=== PATIENT | female | born 1970 | race Caucasian/White ===

== ENCOUNTER 2022-06-30 08:48 | Emergency (ER) | payer MEDICAID ==
[~2022-06-30] VITALS: Ht 160 cm; Wt 106.8 kg
[2022-06-30 08:49] VITALS: BP 132/79
[2022-06-30] MEDS ORDERED: oxyCODONE IR 5mg (immed. release) tablet PO ONE (09:30)
[2022-06-30] MEDS ORDERED: QUET-1 PO (09:42)
[2022-06-30] MEDS ORDERED: LITH300C PO (09:42)
[2022-06-30] MEDS ORDERED: ZOLP10TA PO (09:42)
== END 2022-06-30 10:04 | disposition home or self-care (01) ==
LOC: ER 08:49
DX: M06.9 Rheumatoid arthritis, unspecified (principal); M45.9 Ankylosing spondylitis of unspecified sites in spine; Z76.0 Encounter for issue of repeat prescription; Z88.1 Allergy status to other antibiotic agents; Z88.8 Allergy status to other drugs, medicaments and biological substances; Z79.899 Other long term (current) drug therapy
CPT/HCPCS: 99283

== ENCOUNTER 2022-07-11 08:25 | Emergency (ER) | payer MEDICAID ==
[~2022-07-11] VITALS: Ht 160 cm; Wt 106.0 kg
[~2022-07-11 08:25] MED LIST: LITH300C PO; QUET-1 PO; ZOLP10TA PO
[2022-07-11 08:46] VITALS: BP 127/92
[2022-07-11] MEDS ORDERED: SUMAtriptan succ. 6 MG/0.5ml vial SQ ONE (11:35)
[2022-07-11] MEDS ORDERED: diphenhydrAMINE 50 mg/ml inj IV ONE (11:35)
[2022-07-11] MEDS ORDERED: normal saline 1000ML IV soln IVB ONE (11:35)
[2022-07-11] MEDS ORDERED: ondansetron/PF 4mg/2ml inj IV ONE (12:10)
== END 2022-07-11 13:21 | disposition home or self-care (01) ==
LOC: ER 08:26
DX: G43.119 Migraine with aura, intractable, without status migrainosus (principal); I10 Essential (primary) hypertension; Z88.1 Allergy status to other antibiotic agents; Z88.8 Allergy status to other drugs, medicaments and biological substances
CPT/HCPCS: 96372; 96374; 96375; 99284; J1200; J2405; J3030; J7030

== ENCOUNTER 2022-09-01 07:47 | Inpatient (IN) | payer MEDICAID ==
[~2022-09-01] VITALS: Ht 160 cm; Wt 102.0 kg
[2022-09-01 08:13] LABS: URINE HCG NEGATIVE (NEG)
[2022-09-01 08:19] LABS: BASOPHILS # (AUTO) 0.1 X10'3 (0-0.2); BASOPHILS % (AUTO) 0.5 % (0-1); EOSINOPHILS # (AUTO) 0.2 X10'3 (0-0.9); EOSINOPHILS % (AUTO) 2.4 % (0-6); HEMATOCRIT 37.2 % (35.0-45.0); HEMOGLOBIN 12.3 g/dl (12.0-16.0); LYMPHOCYTES % (AUTO) 29.3 % (21-51); MEAN CORPUSCULAR HEMOGLOBIN 33.8 PG (27.0-31.0); MEAN CORPUSCULAR VOLUME 102.6 FL (78-98); MEAN PLATELET VOLUME 6.9 FL (7.4-10.4); MONOCYTES # (AUTO) 0.5 X10'3 (0-0.9); MONOCYTES % (AUTO) 4.9 % (2-12); NEUTROPHILS # (AUTO) 6.4 X10'3 (1.8-7.7); NEUTROPHILS % (AUTO) 62.9 % (42-75); PLATELET COUNT 568 X10'3 (140-440); RED BLOOD COUNT 3.62 X10'6 (4.20-5.60); RED CELL DISTRIBUTION WIDTH 15.2 % (11.5-14.5); WHITE BLOOD COUNT 10.2 X10'3 (4.5-11.0)
[2022-09-01] MEDS ORDERED: pantoprazole 40mg IV 80 MG in normal saline 100ml IV soln 100 ML IV ONE (08:30)
[2022-09-01] MEDS ORDERED: ondansetron/PF 4mg/2ml inj IV ONE (08:30)
[2022-09-01] MEDS ORDERED: morphine 2 MG/ML inj. syringe IV ONE ×2 (08:30→09:30)
[2022-09-01] MEDS ORDERED: normal saline 1000ml 1,000 ML IV ONE (08:30)
[2022-09-01 08:31] LABS: ALANINE AMINOTRANSFERASE 26 U/L (12-78); ALBUMIN 4.1 G/DL (3.4-5.0); ALBUMIN/GLOBULIN RATIO 1.2 (1.1-1.5); ALKALINE PHOSPHATASE 61 IU/L (46-116); ANION GAP 13 (8-16); ASPARTATE AMINO TRANSFERASE 19 U/L (10-37); BILIRUBIN,TOTAL 0.4 MG/DL (0.1-1.0); BLOOD UREA NITROGEN 6 MG/DL (7-18); BUN/CREATININE RATIO 7.3 (10.0-20.0); CALCIUM 9.4 MG/DL (8.5-10.1); CHLORIDE 102 MMOL/L (99-107); CREATININE 0.82 MG/DL (0.40-0.90); GLUCOSE 129 MG/DL (70-104); LIPASE 51 U/L (73-393); SODIUM 138 MMOL/L (135-145); TOTAL CARBON DIOXIDE 23.5 MMOL/L (24-32); TOTAL PROTEIN 7.4 G/DL (6.4-8.2); eGFR 74 ML/MIN
[2022-09-01 08:47] LABS: CLARITY,URINE CLEAR (Clear); COLOR,URINE YELLOW (Yellow); GLUCOSE, URINE 500 mg/dl (Neg); KETONES,URINE NEGATIVE (Neg); LEUKOCYTE ESTERASE ,URINE NEGATIVE (Neg); NITRITES, URINE NEGATIVE (Neg); OCCULT BLOOD,URINE NEGATIVE (Neg); PROTEIN,URINE NEGATIVE (Neg); UROBILINOGEN,URINE 0.2 E.U/dL (0.2-1.0)
[2022-09-01 08:50] LABS: UA COLLECTION TYPE CLN CATCH MIDSTREAM
[2022-09-01] MEDS ORDERED: iohexol 300mg/ml 100ml inj. ONE (09:12)
--- NOTE | 2022-09-01 10:29 | NUR ---
PER DR RAYGOZA HEMOCULT POSITIVE PT TO BE ADMITTED FOR GI BLEED
[2022-09-01] MEDS: pantoprazole 40MG/NS 100ML BAG 100 ML IV SCH ×3 (11:00→23:02)
[2022-09-01] MEDS ORDERED: MESSAGE TO PHARMACY PO ONE (11:15)
[2022-09-01] MEDS ORDERED: potassium Cl 20 mEq SR tablet PO PRN ×2 (11:15)
[2022-09-01] MEDS ORDERED: DEXTROSE 15 GM of carb/4 tabs (each vial/BOTTLE has 4 tablets) PO PRN ×2 (11:15)
[2022-09-01] MEDS ORDERED: magnesium hydroxide 30ml (MOM) UD suspension PO PRN (11:15)
[2022-09-01] MEDS ORDERED: magnesium 4gm in 100ml NS 100 ML IV PRN (11:15)
[2022-09-01] MEDS ORDERED: acetaminophen 325mg tablet PO PRN ×2 (11:15)
[2022-09-01] MEDS ORDERED: potassium Cl 40MEQ/1/2NS 520ml 520 ML IV PRN (11:15)
[2022-09-01] MEDS ORDERED: mag hydrox/Alum hydrox/simeth 30ml oral suspension PO PRN (11:15)
[2022-09-01] MEDS ORDERED: HYDROcodone/acetaminophen 5mg/325mg tablet PO PRN (11:15)
[2022-09-01] MEDS ORDERED: insulin Lispro (HumaLOG) vial - multi-dose SQ SCH (11:15)
[2022-09-01] MEDS ORDERED: dextrose 50%-water 50ml dispensing syringe IV PRN ×2 (11:15)
[2022-09-01] MEDS ORDERED: ondansetron/PF 4mg/2ml inj IV PRN (11:15)
[2022-09-01] MEDS ORDERED: glucagon, human recombinant 1mg kit SUBCUT PRN (11:15)
[2022-09-01] MEDS: HYDROcodone/acetaminophen 10/325mg tab PO PRN ×2 (12:02→19:32)
[2022-09-01] MEDS ORDERED: LIT300C PO (13:06)
[2022-09-01] MEDS ORDERED: FOLI1TAB27 PO (13:08)
[2022-09-01] MEDS ORDERED: OXYC1TAB17 PO (13:22)
[2022-09-01] MEDS ORDERED: DULO60CA65 PO (13:22)
[2022-09-01] MEDS ORDERED: METH-798 PO (13:22)
[2022-09-01] MEDS ORDERED: LAMO200T51 PO (13:22)
[2022-09-01] MEDS ORDERED: EMPA10TA PO (13:22)
[2022-09-01] MEDS ORDERED: MELO-102 PO (13:22)
[2022-09-01] MEDS ORDERED: LOSA25TA41 PO (13:22)
[2022-09-01] MEDS ORDERED: MUPI22OI30 TOP (13:22)
[2022-09-01] MEDS ORDERED: FLUT16SP26 BOTHNARES (13:22)
[2022-09-01] MEDS ORDERED: CARI4.5C PO (13:22)
[2022-09-01] MEDS ORDERED: METO-395 PO (13:22)
[2022-09-01] MEDS ORDERED: DULA1.5P SQ (13:22)
[2022-09-01] MEDS ORDERED: ATOR-2 PO (13:22)
--- NOTE | 2022-09-01 13:33 | NUR ---
CALL PLACED TO ORTHO IN ATTEMPT TO GIVE REPORT, LEFT ON HOLD FOR EXTENDED PERIOD. HUNG UP TO RECEIVE AMBULANCE. WILL CALL IN 10
--- NOTE | 2022-09-01 13:41 | NUR ---
SECOND ATTEMPT AT CALLING REPORT, LEFT ON HOLD FOR FOUR MINUTES. NEED TO SETTLE CRITICAL PATIENT
--- NOTE | 2022-09-01 13:55 | NUR ---
RODOLFO RN WILL CALL ME BY [phone] TO RECEIVE REPORT, SHE HAS JUST SPIKED BLOOD
--- NOTE | 2022-09-01 14:03 | NUR ---
PER JESUS THIS RN TO TAKE PT UP TO GIVE BEDSIDE REPORT
--- NOTE | 2022-09-01 14:04 | NUR ---
ATTEMPTED TO CALL [facility] TO GIVE REPORT BEFORE TRANSPORTING PT, NO ANSWER ON ORTHO 10+ RINGS
[2022-09-01] MEDS ORDERED: TYPE IN GENERIC & BRAND NAME OF PATIENT MED STRENGTH & FORM PO PRN (14:10)
[2022-09-01] MEDS ORDERED: oxyCODONE/APAP 10/325mg tablet PO PRN (14:10)
[2022-09-01 14:30] VITALS: BP 145/89
[2022-09-01 16:08] VITALS: BP 147/70
[2022-09-01 16:08] LABS: OCCULT BLOOD STOOL POSITIVE (Neg)
[2022-09-01] MEDS ORDERED: fentaNYL/PF 50MCG/1 ML 2ML syringe ONE (16:11)
[2022-09-01] MEDS ORDERED: MIDAZolam 1 MG/ML 5ML VIAL ONE (16:12)
[2022-09-01] MEDS ORDERED: diphenhydrAMINE 50 mg/ml inj ONE (16:12)
[2022-09-01] MEDS ORDERED: LIDOcaine Viscous 15ml cup ONE (16:12)
[2022-09-01 16:35] VITALS: BP 138/82
[2022-09-01 16:45] VITALS: BP 141/76
[2022-09-01 16:55] VITALS: BP 132/77
[2022-09-01 17:05] VITALS: BP 145/78
[2022-09-01 19:18] LABS: HEMOGLOBIN A1C 4.9 % (4.5-6.2)
[2022-09-01] MEDS: docusate sod 100mg capsule PO SCH (19:34)
[2022-09-01] MEDS ORDERED: mupirocin 2% ointment 22GM NS SCH (20:00)
[2022-09-01] MEDS: K and/or MAG REPLACEMENT MC SCH (20:00)
[2022-09-01] MEDS ORDERED: insulin glargine (Lantus) pen - multi-dose SQ SCH (21:00)
[2022-09-01] MEDS ORDERED: lithium carbonate 150mg capsule PO SCH (21:00)
[2022-09-01] MEDS ORDERED: atorvastatin 20mg tablet PO SCH (21:00)
[2022-09-01] MEDS ORDERED: zolpidem 5mg tablet PO PRN (21:00)
[2022-09-01] MEDS ORDERED: TYPE IN GENERIC & BRAND NAME OF PATIENT MED STRENGTH & FORM PO SCH (21:00)
[2022-09-01] MEDS ORDERED: mupirocin 2% nasal ointment 1gm UD NS SCH (21:35)
--- NOTE | 2022-09-01 22:21 | NUR ---
Student documentation: I have reviewed interventions, assessments performed and documented by Dorita GASTON [facility].
[2022-09-01] MEDS: oxyCODONE/APAP 10/325mg tablet PO PRN (23:16)
[2022-09-02] MEDS: pantoprazole 40MG/NS 100ML BAG 100 ML IV SCH ×3 (04:09→10:46)
[2022-09-02] MEDS: K and/or MAG REPLACEMENT MC SCH (06:16)
[2022-09-02 07:16] LABS: BASOPHILS % (AUTO) 0.5 % (0-1); EOSINOPHILS # (AUTO) 0.3 X10'3 (0-0.9); HEMATOCRIT 33.7 % (35.0-45.0); HEMOGLOBIN 11.1 g/dl (12.0-16.0); LYMPHOCYTES # (AUTO) 2.8 X10'3 (1.1-4.8); LYMPHOCYTES % (AUTO) 35.4 % (21-51); MEAN CORPUSCULAR HGB CONC 33.1 g/dL (33.0-36.5); MEAN CORPUSCULAR VOLUME 102.6 FL (78-98); MEAN PLATELET VOLUME 6.9 FL (7.4-10.4); MONOCYTES # (AUTO) 0.5 X10'3 (0-0.9); MONOCYTES % (AUTO) 5.9 % (2-12); NEUTROPHILS # (AUTO) 4.2 X10'3 (1.8-7.7); NEUTROPHILS % (AUTO) 54.2 % (42-75); PLATELET COUNT 479 X10'3 (140-440); RED BLOOD COUNT 3.28 X10'6 (4.20-5.60); RED CELL DISTRIBUTION WIDTH 15.4 % (11.5-14.5); WHITE BLOOD COUNT 7.8 X10'3 (4.5-11.0)
[2022-09-02 07:38] LABS: ALANINE AMINOTRANSFERASE 24 U/L (12-78); ALBUMIN 3.5 G/DL (3.4-5.0); ALBUMIN/GLOBULIN RATIO 1.3 (1.1-1.5); ALKALINE PHOSPHATASE 53 IU/L (46-116); ANION GAP 8 (8-16); ASPARTATE AMINO TRANSFERASE 21 U/L (10-37); BILIRUBIN,TOTAL 0.2 MG/DL (0.1-1.0); BLOOD UREA NITROGEN 6 MG/DL (7-18); BUN/CREATININE RATIO 9.5 (10.0-20.0); CALCIUM 9.3 MG/DL (8.5-10.1); CHLORIDE 105 MMOL/L (99-107); CREATININE 0.63 MG/DL (0.40-0.90); GLUCOSE 104 MG/DL (70-104); POTASSIUM 3.6 MMOL/L (3.5-5.1); SODIUM 140 MMOL/L (135-145); TOTAL PROTEIN 6.3 G/DL (6.4-8.2); eGFR > 90 ML/MIN
[2022-09-02 07:56] VITALS: BP 119/84
[2022-09-02] MEDS ORDERED: metoprolol succinate 25mg (24-HOUR) SR. Tablet PO SCH (08:00)
[2022-09-02] MEDS ORDERED: folic acid 1mg tablet PO SCH (08:00)
[2022-09-02] MEDS ORDERED: TYPE IN GENERIC & BRAND NAME OF PATIENT MED STRENGTH & FORM PO SCH (08:00)
[2022-09-02] MEDS ORDERED: duloxetine 30mg CAPSULE.DR PO SCH (08:00)
[2022-09-02] MEDS ORDERED: EMPAGLIFLOZIN 10 MG TABLET PO SCH (08:00)
[2022-09-02] MEDS ORDERED: losartan 25mg tablet PO SCH (08:00)
[2022-09-02] MEDS: docusate sod 100mg capsule PO SCH (08:42)
[2022-09-02] MEDS: oxyCODONE/APAP 10/325mg tablet PO PRN (08:50)
--- NOTE | 2022-09-02 09:28 | NUR ---
DM Consult: Pt hx T2DM in EMR though A1C 4.9% on regular diet, no home DM meds in EMR, and to start Jardiance this admit per EMR. Pt A1C appropriate per ADA guidelines; not appropriate for DM ed at this time. Addendum: 09/02/22 at [address] Amended: Links added.
[2022-09-02 09:53] VITALS: BP 115/92
[2022-09-02] MEDS ORDERED: ALPRAZolam 0.25mg tablet PO PRN (10:05)
[2022-09-02] MEDS ORDERED: PANT-47 PO (12:03)
[2022-09-02] MEDS: HYDROcodone/acetaminophen 10/325mg tab PO PRN (12:45)
[2022-09-03 15:38] LABS: HBSAG SCREEN Negative (Negative); HEP B CORE AB, TOT Negative (Negative)
== END 2022-09-02 13:15 | disposition home or self-care (01) | DRG 241 ==
LOC: ER 07:47 → ED HOLD 11:21 → ORTHO 4S 14:20
PROVIDERS: ADMIT Family Medicine; ATTEND Family Medicine
PROC: BW211ZZ Computerized Tomography (CT Scan) of Abdomen and Pelvis using Low Osmolar Contrast (ICD-10-PCS; principal; 2022-09-01)
PROC: 0DB78ZX Excision of Stomach, Pylorus, Via Natural or Artificial Opening Endoscopic, Diagnostic (ICD-10-PCS; 2022-09-01)
DX: K25.4 Chronic or unspecified gastric ulcer with hemorrhage (principal); K22.11 Ulcer of esophagus with bleeding; D64.9 Anemia, unspecified; E11.9 Type 2 diabetes mellitus without complications; E78.5 Hyperlipidemia, unspecified; F31.9 Bipolar disorder, unspecified; I10 Essential (primary) hypertension; G24.01 Drug induced subacute dyskinesia; M06.9 Rheumatoid arthritis, unspecified; M45.9 Ankylosing spondylitis of unspecified sites in spine; Z79.84 Long term (current) use of oral hypoglycemic drugs; Z81.8 Family history of other mental and behavioral disorders; Z88.1 Allergy status to other antibiotic agents; Z90.49 Acquired absence of other specified parts of digestive tract; Z88.8 Allergy status to other drugs, medicaments and biological substances
CPT/HCPCS: 36415; 43239; 74177; 80053; 81003; 81025; 82272; 82948; 83036; 83690; 83735; 84702; 85025; 86704; 86705; 86706; 86885; 86900; 86901; 87340; 99152; 99285; A4620; C9113; G0378; J1200; J1815; J2250; J2270; J2405; J3010; J3490; J7030; Q9967

== ENCOUNTER 2022-09-16 08:47 | Emergency (ER) | payer MEDICAID ==
[~2022-09-16] VITALS: Ht 160 cm; Wt 100.0 kg
[~2022-09-16 08:47] MED LIST changes: +ATOR-2 PO; +CARI4.5C PO; +DULA1.5P SQ; +DULO60CA65 PO; +EMPA10TA PO; +FLUT16SP26 BOTHNARES; +FOLI1TAB27 PO; +LAMO200T51 PO; +LIT300C PO; -LITH300C PO; +LOSA25TA41 PO; +METH-798 PO; +METO-395 PO; +MUPI22OI30 TOP; +OXYC1TAB17 PO; +PANT-47 PO; -QUET-1 PO
[2022-09-16 09:57] LABS: BASOPHILS # (AUTO) 0.1 X10'3 (0-0.2); BASOPHILS % (AUTO) 0.7 % (0-1); EOSINOPHILS # (AUTO) 0.3 X10'3 (0-0.9); EOSINOPHILS % (AUTO) 3.1 % (0-6); HEMATOCRIT 40.7 % (35.0-45.0); HEMOGLOBIN 13.4 g/dl (12.0-16.0); LYMPHOCYTES # (AUTO) 2.2 X10'3 (1.1-4.8); LYMPHOCYTES % (AUTO) 26.9 % (21-51); MEAN CORPUSCULAR HEMOGLOBIN 33.9 PG (27.0-31.0); MEAN CORPUSCULAR HGB CONC 32.9 g/dL (33.0-36.5); MEAN CORPUSCULAR VOLUME 102.9 FL (78-98); MEAN PLATELET VOLUME 6.4 FL (7.4-10.4); MONOCYTES # (AUTO) 0.4 X10'3 (0-0.9); MONOCYTES % (AUTO) 5.2 % (2-12); NEUTROPHILS # (AUTO) 5.2 X10'3 (1.8-7.7); NEUTROPHILS % (AUTO) 64.1 % (42-75); PLATELET COUNT 515 X10'3 (140-440); RED BLOOD COUNT 3.96 X10'6 (4.20-5.60); RED CELL DISTRIBUTION WIDTH 15.5 % (11.5-14.5); WHITE BLOOD COUNT 8.2 X10'3 (4.5-11.0)
[2022-09-16 10:07] LABS: APTT 28 SECONDS (22-32)
[2022-09-16 10:08] LABS: ALANINE AMINOTRANSFERASE 23 U/L (12-78); ALBUMIN 3.8 G/DL (3.4-5.0); ALBUMIN/GLOBULIN RATIO 1.2 (1.1-1.5); ALKALINE PHOSPHATASE 67 IU/L (46-116); ANION GAP 8 (8-16); ASPARTATE AMINO TRANSFERASE 16 U/L (10-37); BILIRUBIN,TOTAL 0.3 MG/DL (0.1-1.0); BLOOD UREA NITROGEN 10 MG/DL (7-18); BUN/CREATININE RATIO 14.3 (10.0-20.0); CALCIUM 8.9 MG/DL (8.5-10.1); CHLORIDE 105 MMOL/L (99-107); GLUCOSE 115 MG/DL (70-104); POTASSIUM 4.3 MMOL/L (3.5-5.1); SODIUM 139 MMOL/L (135-145); eGFR 89 ML/MIN
[2022-09-16 10:28] LABS: URINE HCG NEGATIVE (NEG)
[2022-09-16 10:46] LABS: CLARITY,URINE CLEAR (Clear); COLOR,URINE YELLOW (Yellow); GLUCOSE, URINE NEGATIVE (Neg); KETONES,URINE NEGATIVE (Neg); LEUKOCYTE ESTERASE ,URINE NEGATIVE (Neg); NITRITES, URINE NEGATIVE (Neg); OCCULT BLOOD,URINE NEGATIVE (Neg); PROTEIN,URINE NEGATIVE (Neg); UROBILINOGEN,URINE 0.2 E.U/dL (0.2-1.0)
[2022-09-16 10:48] LABS: UA COLLECTION TYPE CLN CATCH MIDSTREAM
[2022-09-16] MEDS ORDERED: ondansetron 4mg rapidly disintigrating tab PO STA (10:56)
[2022-09-16] MEDS ORDERED: lactulose 20gm/30ml cup PO ONE (11:00)
[2022-09-16] MEDS ORDERED: magnesium oxide 400mg tablet PO ONE (11:00)
[2022-09-16] MEDS ORDERED: mineral oil 133ml enema RC PRN (11:00)
[2022-09-16] MEDS ORDERED: ketorolac trometh. 30mg/ml inj. IV ONE (12:00)
[2022-09-16] MEDS ORDERED: normal saline 1000ml 1,000 ML IV ONE (12:00)
[2022-09-16 12:02] LABS: OCCULT BLOOD STOOL NEGATIVE (Neg)
[2022-09-16] MEDS ORDERED: CALC625T62 PO (12:28)
[2022-09-16] MEDS ORDERED: BISA10SU64 RC (12:31)
[2022-09-16 13:09] VITALS: BP 112/85
== END 2022-09-16 13:11 | disposition home or self-care (01) ==
LOC: ER 08:48
DX: K59.00 Constipation, unspecified (principal); I10 Essential (primary) hypertension; Z88.1 Allergy status to other antibiotic agents; Z88.8 Allergy status to other drugs, medicaments and biological substances
CPT/HCPCS: 36415; 71045; 80053; 81003; 81025; 82272; 85025; 85610; 85730; 86885; 86900; 86901; 93005; 96374; 99285; J1885; J7030

== ENCOUNTER 2022-12-12 11:57 | Emergency (ER) | payer MEDICAID ==
[~2022-12-12] VITALS: Ht 160 cm; Wt 105.5 kg
[~2022-12-12 11:57] MED LIST changes: +BISA10SU64 RC; +CALC625T62 PO
[2022-12-12 12:08] VITALS: BP 123/76; PULSE 74; RESP 20; TEMP 98.4; O2SAT 97
[2022-12-12] MEDS ORDERED: ondansetron/PF 4mg/2ml inj IV ONE (14:40)
[2022-12-12] MEDS ORDERED: morphine 2 MG/ML inj. syringe IV ONE (14:40)
[2022-12-12] MEDS ORDERED: normal saline 1000ml 1,000 ML IV ONE (14:40)
[2022-12-12] MEDS ORDERED: ONDA4TAB12 PO (14:51)
[2022-12-12] MEDS ORDERED: METH4TAB3 PO (14:51)
--- NOTE | 2022-12-12 15:25 | NUR ---
REQUESTED CRN AND RN TO ADMIN IV MEDS AT 15:00 AND 15:20. PT STILL WAITING.
[2022-12-12] MEDS ORDERED: prednisone 10mg tablet PO STA (16:00)
== END 2022-12-12 16:12 | disposition home or self-care (01) ==
LOC: ER 11:58
DX: M06.9 Rheumatoid arthritis, unspecified (principal); I10 Essential (primary) hypertension; Z88.8 Allergy status to other drugs, medicaments and biological substances; Z88.6 Allergy status to analgesic agent
CPT/HCPCS: 96374; 96375; 99284; J2270; J2405; J7030; J7512

== ENCOUNTER 2023-02-18 09:24 | Inpatient (IN) | payer MEDICAID ==
[~2023-02-18] VITALS: Ht 160 cm; Wt 98.2 kg
[~2023-02-18 09:24] MED LIST changes: +METH4TAB3 PO; +ONDA4TAB12 PO
[2023-02-18 09:52] LABS: BASOPHILS % (AUTO) 0.4 % (0-1); EOSINOPHILS # (AUTO) 0.2 X10'3 (0-0.9); HEMATOCRIT 44.4 % (35.0-45.0); HEMOGLOBIN 14.7 g/dl (12.0-16.0); LYMPHOCYTES # (AUTO) 1.9 X10'3 (1.1-4.8); LYMPHOCYTES % (AUTO) 18.2 % (21-51); MEAN CORPUSCULAR HEMOGLOBIN 32.7 PG (27.0-31.0); MEAN CORPUSCULAR HGB CONC 33.2 g/dL (33.0-36.5); MEAN CORPUSCULAR VOLUME 98.5 FL (78-98); MEAN PLATELET VOLUME 7.4 FL (7.4-10.4); MONOCYTES # (AUTO) 0.8 X10'3 (0-0.9); MONOCYTES % (AUTO) 7.6 % (2-12); NEUTROPHILS # (AUTO) 7.7 X10'3 (1.8-7.7); NEUTROPHILS % (AUTO) 71.8 % (42-75); PLATELET COUNT 455 X10'3 (140-440); RED BLOOD COUNT 4.51 X10'6 (4.20-5.60); RED CELL DISTRIBUTION WIDTH 14.1 % (11.5-14.5); WHITE BLOOD COUNT 10.7 X10'3 (4.5-11.0)
[2023-02-18 10:08] LABS: ALANINE AMINOTRANSFERASE 24 U/L (12-78); ALBUMIN 3.7 G/DL (3.4-5.0); ALBUMIN/GLOBULIN RATIO 0.9 (1.1-1.5); ALKALINE PHOSPHATASE 88 IU/L (46-116); ANION GAP 8 (8-16); ASPARTATE AMINO TRANSFERASE 17 U/L (10-37); BILIRUBIN,TOTAL 0.4 MG/DL (0.1-1.0); BLOOD UREA NITROGEN 9 MG/DL (7-18); BUN/CREATININE RATIO 8.8 (10.0-20.0); CALCIUM 9.7 MG/DL (8.5-10.1); CHLORIDE 100 MMOL/L (99-107); CREATININE 1.02 MG/DL (0.40-0.90); GLUCOSE 216 MG/DL (70-104); SODIUM 136 MMOL/L (135-145); TOTAL CARBON DIOXIDE 27.6 MMOL/L (24-32); TOTAL PROTEIN 7.7 G/DL (6.4-8.2); eCRCL 55 ML/MIN; eGFR 57 ML/MIN
[2023-02-18 10:25] LABS: LIPASE 14 U/L (16-77)
[2023-02-18 11:28] LABS: URINE HCG NEGATIVE (NEG)
[2023-02-18 11:30] LABS: BILIRUBIN,URINE NEGATIVE (Neg); CLARITY,URINE CLOUDY (Clear); COLOR,URINE YELLOW (Yellow); GLUCOSE, URINE >=1000 mg/dl (Neg); KETONES,URINE TRACE mg/dl (Neg); LEUKOCYTE ESTERASE ,URINE SMALL (Neg); NITRITES, URINE POSITIVE (Neg); OCCULT BLOOD,URINE TRACE-INTACT (Neg); PH,URINE 5.5 (4.8-8.0); PROTEIN,URINE TRACE mg/dl (Neg); UROBILINOGEN,URINE 0.2 E.U/dL (0.2-1.0)
[2023-02-18 11:32] LABS: UA COLLECTION TYPE CLN CATCH MIDSTREAM
[2023-02-18 11:54] LABS: BACTERIA,URINE 2+ /HPF (Neg); RBC,URINE 0-2 /HPF (0-2); WBC CLUMPS,URINE MANY /HPF (NEGATIVE); WBC,URINE TNTC /HPF (0-4)
[2023-02-18 11:56] LABS: SQUAMOUS EPITHELIAL CELL,UR MODERATE /LPF (FEW)
[2023-02-18] MEDS ORDERED: iohexol 300mg/ml 100ml inj. ONE (11:58)
[2023-02-18] MEDS ORDERED: CefTRIAXone 2gm/D5W 50ml BAG 50 ML IV ONE (13:05)
[2023-02-18] MEDS ORDERED: diphenhydrAMINE 50 mg/ml inj IV ONE (13:10)
[2023-02-18] MEDS ORDERED: normal saline 1000ML IV soln IVB ONE (13:10)
[2023-02-18] MEDS ORDERED: metoclopramide 5 mg/ml inj IV ONE (13:10)
[2023-02-18] MEDS ORDERED: morphine 4 MG/ML inj SYRINge IV ONE (13:40)
[2023-02-18] MEDS ORDERED: morphine 2 MG/ML inj. syringe IV PRN (13:50)
[2023-02-18] MEDS ORDERED: DEXTROSE 15 GM of carb/4 tabs (each vial/BOTTLE has 4 tablets) PO PRN ×2 (13:50)
[2023-02-18] MEDS ORDERED: HYDROcodone/acetaminophen 5mg/325mg tablet PO PRN (13:50)
[2023-02-18] MEDS ORDERED: insulin Lispro (HumaLOG) vial - multi-dose SQ SCH (13:50)
[2023-02-18] MEDS ORDERED: MESSAGE TO PHARMACY PO ONE (13:50)
[2023-02-18] MEDS ORDERED: dextrose 50%-water 50ml dispensing syringe IV PRN ×2 (13:50)
[2023-02-18] MEDS ORDERED: mag hydrox/Alum hydrox/simeth 30ml oral suspension PO PRN (13:50)
[2023-02-18] MEDS ORDERED: acetaminophen 325mg tablet PO PRN ×2 (13:50)
[2023-02-18] MEDS ORDERED: glucagon, human recombinant 1mg kit SUBCUT PRN (13:50)
[2023-02-18] MEDS: metoclopramide 5 mg/ml inj IV SCH ×2 (14:34→20:45)
[2023-02-18 15:44] LABS: HEMOGLOBIN A1C 5.3 % (4.5-6.2); PRO BRAIN NATRIURETIC PEPTIDE 60 PG/ML (0-125)
[2023-02-18] MEDS ORDERED: LIT300C PO (15:56)
[2023-02-18] MEDS ORDERED: DULO60CA65 PO (15:57)
[2023-02-18] MEDS ORDERED: CELE-127 PO (15:57)
[2023-02-18] MEDS ORDERED: PANT40TA54 PO (15:58)
[2023-02-18] MEDS ORDERED: HYDR-3972 PO (15:58)
[2023-02-18] MEDS ORDERED: METH-798 PO (15:59)
[2023-02-18] MEDS ORDERED: DULA1.5P SQ (15:59)
[2023-02-18] MEDS ORDERED: ZOLP5TAB8 PO (16:01)
[2023-02-18] MEDS ORDERED: FLUT16SP26 BOTHNARES (16:01)
[2023-02-18] MEDS ORDERED: EMPA10TA PO (16:01)
[2023-02-18] MEDS ORDERED: LAMO200T51 PO (16:01)
[2023-02-18] MEDS ORDERED: QUET25TA36 PO (16:02)
[2023-02-18] MEDS ORDERED: ATOR-2 PO (16:02)
[2023-02-18] MEDS ORDERED: METO-395 PO (16:02)
[2023-02-18] MEDS ORDERED: LOSA25TA41 PO (16:02)
[2023-02-18] MEDS ORDERED: CARI4.5C PO (16:02)
[2023-02-18] MEDS: normal saline 1000ml 1,000 ML IV SCH ×2 (16:08→23:22)
[2023-02-18] MEDS: morphine 2 MG/ML inj. syringe IV PRN ×2 (16:17→20:46)
[2023-02-18] MEDS: ondansetron/PF 4mg/2ml inj IV PRN (16:21)
--- NOTE | 2023-02-18 16:53 | NUR ---
ATTEMPTED NG TUBE MULTIPLE TIMES W/O SUCCESS. TOMMIE BARNHART AWARE.
[2023-02-18] MEDS: LORazepam 0.5 MG tablet PO PRN (18:12)
[2023-02-18 19:00] VITALS: BP 142/92; PULSE 101; RESP 18; TEMP 99.8; O2SAT 96
--- NOTE | 2023-02-18 19:03 | NUR ---
PATIENT ACCIDENTALLY PULLED THE [place] TUBE OUT ON ARRIVAL FROM ER. SHE IS REFUSING TO HAVE IT REINSERTED AND DOCTOR EL NOTIFIED. WILL CONTINUE TO MONITOR PATIENT.
[2023-02-18] MEDS ORDERED: ondansetron/PF 4mg/2ml inj IM ONE (19:05)
[2023-02-18] MEDS ORDERED: ondansetron/PF 4mg/2ml inj IV ONE (19:15)
[2023-02-18] MEDS: docusate sod 100mg capsule PO SCH (19:16)
[2023-02-18 20:00] VITALS: RESP 18; O2SAT 96
[2023-02-18] MEDS ORDERED: bisacodyl 10mg suppository rectal RC PRN (20:00)
[2023-02-18] MEDS ORDERED: mineral oil 133ml enema RC PRN (20:00)
[2023-02-18] MEDS: magnesium hydroxide 30ml (MOM) UD suspension PO PRN (20:46)
[2023-02-18] MEDS: insulin glargine (Lantus) pen - multi-dose SQ SCH (21:00)
[2023-02-18 22:00] VITALS: BP 130/81; PULSE 119; RESP 16; TEMP 100; O2SAT 92
[2023-02-18] MEDS ORDERED: HYDROcodone/acetaminophen 10/325mg tab PO PRN (23:00)
[2023-02-18] MEDS ORDERED: celeCOXIB 100mg capsule PO SCH (23:08)
[2023-02-18] MEDS: duloxetine 30mg CAPSULE.DR PO SCH (23:21)
[2023-02-18] MEDS: zolpidem 5mg tablet PO PRN (23:21)
[2023-02-18] MEDS: QUEtiapine 25mg tablet PO SCH (23:21)
[2023-02-18] MEDS: cyclobenzaprine 10mg tablet PO SCH (23:21)
[2023-02-18] MEDS: atorvastatin 20mg tablet PO SCH (23:22)
[2023-02-19] VITALS (7 sets, daily range): BP systolic 116–142; BP diastolic 55–92; PULSE 92–103; RESP 15–18; TEMP 96.8–99.9; O2SAT 91–97
[2023-02-19] MEDS: morphine 2 MG/ML inj. syringe IV PRN ×4 (01:40→15:36)
[2023-02-19] MEDS: metoclopramide 5 mg/ml inj IV SCH ×4 (03:36→19:18)
--- NOTE | 2023-02-19 06:18 | NUR ---
Patient in room ORTHO 4013. I have received report from VALENTIN BARNHART and had the opportunity to ask questions and assume patient care.
--- NOTE | 2023-02-19 06:33 | NUR ---
Problems reprioritized. Patient report given, questions answered & plan of care reviewed with CARLOS BARNHART.
[2023-02-19 06:49] LABS: BASOPHILS % (AUTO) 0.3 % (0-1); EOSINOPHILS # (AUTO) 0.2 X10'3 (0-0.9); EOSINOPHILS % (AUTO) 1.9 % (0-6); HEMOGLOBIN 11.9 g/dl (12.0-16.0); LYMPHOCYTES # (AUTO) 2.1 X10'3 (1.1-4.8); LYMPHOCYTES % (AUTO) 22.7 % (21-51); MEAN CORPUSCULAR HEMOGLOBIN 32.2 PG (27.0-31.0); MEAN CORPUSCULAR HGB CONC 33.1 g/dL (33.0-36.5); MEAN CORPUSCULAR VOLUME 97.3 FL (78-98); MEAN PLATELET VOLUME 7.5 FL (7.4-10.4); MONOCYTES # (AUTO) 0.9 X10'3 (0-0.9); MONOCYTES % (AUTO) 10.1 % (2-12); PLATELET COUNT 315 X10'3 (140-440); RED CELL DISTRIBUTION WIDTH 13.9 % (11.5-14.5); WHITE BLOOD COUNT 9.2 X10'3 (4.5-11.0)
[2023-02-19 06:57] LABS: ALBUMIN 2.7 G/DL (3.4-5.0); ANION GAP 6 (8-16); BLOOD UREA NITROGEN 4 MG/DL (7-18); BUN/CREATININE RATIO 5.3 (10.0-20.0); CALCIUM 8.6 MG/DL (8.5-10.1); CHLORIDE 104 MMOL/L (99-107); CREATININE 0.75 MG/DL (0.40-0.90); GLUCOSE 125 MG/DL (70-104); POTASSIUM 3.5 MMOL/L (3.5-5.1); SODIUM 138 MMOL/L (135-145); TOTAL CARBON DIOXIDE 28.2 MMOL/L (24-32); eCRCL 74 ML/MIN; eGFR 82 ML/MIN
[2023-02-19] MEDS: ondansetron/PF 4mg/2ml inj IV PRN (07:46)
[2023-02-19] MEDS: duloxetine 30mg CAPSULE.DR PO SCH ×2 (07:47→19:17)
[2023-02-19] MEDS: cyclobenzaprine 10mg tablet PO SCH ×2 (07:47→12:22)
[2023-02-19] MEDS: docusate sod 100mg capsule PO SCH ×2 (07:47→19:34)
[2023-02-19] MEDS: celeCOXIB 100mg capsule PO SCH ×2 (07:47→19:18)
[2023-02-19] MEDS: enoxaparin 40mg/0.4ml syringe SUBCUT SCH (07:49)
[2023-02-19] MEDS: normal saline 1000ml 1,000 ML IV SCH ×2 (09:50→12:38)
[2023-02-19] MEDS ORDERED: magnesium hydroxide 30ml (MOM) UD suspension PO PRN (12:05)
[2023-02-19] MEDS: magnesium hydroxide 30ml (MOM) UD suspension PO PRN (12:22)
[2023-02-19] MEDS: nystatin 15 GM powder TP SCH ×3 (12:23→20:38)
[2023-02-19] MEDS: HYDROcodone/acetaminophen 10/325mg tab PO PRN ×2 (12:37→20:34)
[2023-02-19] MEDS ORDERED: CefTRIAXone/D5W-Rocephin 1gm 50 ML IV SCH (13:40)
[2023-02-19] MEDS: CefTRIAXone/D5W-Rocephin 1gm 50 ML IV SCH (15:36)
[2023-02-19] MEDS: LORazepam 0.5 MG tablet PO PRN (17:36)
--- NOTE | 2023-02-19 18:32 | NUR ---
Problems reprioritized. Patient report given TO PRUDENCE RN, questions answered & plan of care reviewed with .
--- NOTE | 2023-02-19 18:50 | NUR ---
Patient in room ORTHO 4013. I have received report from CARLOS BARNHART and had the opportunity to ask questions and assume patient care.
[2023-02-19] MEDS: QUEtiapine 25mg tablet PO SCH (20:30)
[2023-02-19] MEDS: atorvastatin 20mg tablet PO SCH (20:30)
[2023-02-19] MEDS: zolpidem 5mg tablet PO PRN (20:34)
[2023-02-19] MEDS ORDERED: LAMOTRIGINE 200 MG PO SCH (21:00)
[2023-02-19] MEDS: insulin glargine (Lantus) pen - multi-dose SQ SCH (21:00)
[2023-02-20] MEDS: normal saline 1000ml 1,000 ML IV SCH (00:06)
[2023-02-20] MEDS: metoclopramide 5 mg/ml inj IV SCH ×2 (02:00→07:29)
[2023-02-20 06:00] VITALS: BP 138/82; PULSE 85; RESP 17; TEMP 97.4; O2SAT 97
--- NOTE | 2023-02-20 06:21 | NUR ---
Patient in room ORTHO 4013. I have received report from BRONWYN Melendez and had the opportunity to ask questions and assume patient care.
--- NOTE | 2023-02-20 06:45 | NUR ---
Problems reprioritized. Patient report given, questions answered & plan of care reviewed with GARY LECHUGA.
[2023-02-20 07:11] LABS: BASOPHILS % (AUTO) 0.4 % (0-1); EOSINOPHILS # (AUTO) 0.3 X10'3 (0-0.9); EOSINOPHILS % (AUTO) 3.5 % (0-6); HEMATOCRIT 35.5 % (35.0-45.0); HEMOGLOBIN 11.5 g/dl (12.0-16.0); LYMPHOCYTES # (AUTO) 2.6 X10'3 (1.1-4.8); LYMPHOCYTES % (AUTO) 34.2 % (21-51); MEAN CORPUSCULAR HGB CONC 32.4 g/dL (33.0-36.5); MEAN PLATELET VOLUME 7.6 FL (7.4-10.4); MONOCYTES # (AUTO) 0.6 X10'3 (0-0.9); MONOCYTES % (AUTO) 8.6 % (2-12); NEUTROPHILS % (AUTO) 53.3 % (42-75); PLATELET COUNT 300 X10'3 (140-440); RED BLOOD COUNT 3.59 X10'6 (4.20-5.60); RED CELL DISTRIBUTION WIDTH 14.2 % (11.5-14.5); WHITE BLOOD COUNT 7.5 X10'3 (4.5-11.0)
[2023-02-20 07:23] LABS: ALBUMIN 2.3 G/DL (3.4-5.0); ANION GAP 7 (8-16); BLOOD UREA NITROGEN 3 MG/DL (7-18); BUN/CREATININE RATIO 4.8 (10.0-20.0); CALCIUM 7.7 MG/DL (8.5-10.1); CHLORIDE 109 MMOL/L (99-107); CREATININE 0.62 MG/DL (0.40-0.90); GLUCOSE 115 MG/DL (70-104); POTASSIUM 3.5 MMOL/L (3.5-5.1); SODIUM 141 MMOL/L (135-145); TOTAL CARBON DIOXIDE 25.4 MMOL/L (24-32); eCRCL 90 ML/MIN; eGFR > 90 ML/MIN
[2023-02-20] MEDS: CefTRIAXone/D5W-Rocephin 1gm 50 ML IV SCH (07:32)
[2023-02-20 08:00] VITALS: RESP 17; O2SAT 97
[2023-02-20] MEDS ORDERED: losartan 25mg tablet PO SCH (08:00)
[2023-02-20] MEDS ORDERED: pantoprazole 40mg Tablet.DR PO SCH (08:00)
[2023-02-20] MEDS ORDERED: lithium carbonate 300mg SR tablet (LithoBID) PO SCH (08:00)
[2023-02-20] MEDS ORDERED: metoprolol succinate 25mg (24-HOUR) SR. Tablet PO SCH (08:00)
[2023-02-20] MEDS: celeCOXIB 100mg capsule PO SCH (08:04)
[2023-02-20] MEDS: docusate sod 100mg capsule PO SCH (08:04)
[2023-02-20] MEDS: duloxetine 30mg CAPSULE.DR PO SCH (08:04)
[2023-02-20] MEDS: enoxaparin 40mg/0.4ml syringe SUBCUT SCH (08:05)
[2023-02-20] MEDS: nystatin 15 GM powder TP SCH (08:05)
[2023-02-20] MEDS: HYDROcodone/acetaminophen 10/325mg tab PO PRN ×2 (08:30→12:14)
[2023-02-20 10:00] VITALS: BP 119/70; PULSE 66; RESP 16; TEMP 97.9; O2SAT 96
[2023-02-20] MEDS ORDERED: CALC625T9 PO (10:07)
[2023-02-20] MEDS ORDERED: DOCU-148 PO (10:07)
[2023-02-20] MEDS ORDERED: SULF1TAB49 PO (11:17)
[2023-02-20 12:14] VITALS: RESP 16
--- NOTE | 2023-02-20 13:27 | NUR ---
Pt stable for d/c. IV discontinued prior to discharge. Patient signed all d/c paperwork. Patient left with all belongings. Spouse was present at the time of discharge. Patient assisted to lobby in wheelchair and left in private vehicle with spouse to go home.
== END 2023-02-20 11:20 | disposition home or self-care (01) | DRG 247 ==
LOC: ER 09:25 → ED HOLD 13:53 → ORTHO 4S 18:38
PROVIDERS: ADMIT Internal Medicine; ATTEND Internal Medicine
PROC: BW211ZZ Computerized Tomography (CT Scan) of Abdomen and Pelvis using Low Osmolar Contrast (ICD-10-PCS; principal; 2023-02-18)
DX: K56.609 Unspecified intestinal obstruction, unspecified as to partial versus complete obstruction (principal); N17.9 Acute kidney failure, unspecified; E11.9 Type 2 diabetes mellitus without complications; I10 Essential (primary) hypertension; M06.9 Rheumatoid arthritis, unspecified; F31.9 Bipolar disorder, unspecified; K56.41 Fecal impaction; N39.0 Urinary tract infection, site not specified; E86.0 Dehydration; K56.7 Ileus, unspecified; Z88.1 Allergy status to other antibiotic agents; Z88.8 Allergy status to other drugs, medicaments and biological substances; Z91.09 Other allergy status, other than to drugs and biological substances; Z79.899 Other long term (current) drug therapy; Z79.84 Long term (current) use of oral hypoglycemic drugs; Z90.49 Acquired absence of other specified parts of digestive tract; Z87.440 Personal history of urinary (tract) infections
CPT/HCPCS: 36415; 74177; 80048; 80053; 81001; 81025; 82948; 83036; 83690; 83880; 85025; 87077; 87081; 87088; 87186; 96365; 96375; 99285; G0378; J0696; J1200; J1650; J1815; J2270; J2405; J2765; J3490; J7030; Q9967

== ENCOUNTER 2023-12-13 09:25 | Emergency (ER) | payer MEDICAID ==
[~2023-12-13] VITALS: Ht 165.1 cm; Wt 104.5 kg
[~2023-12-13 09:25] MED LIST changes: -BISA10SU64 RC; -CALC625T62 PO; +CALC625T9 PO; +CELE-127 PO; +DOCU-148 PO; -DULA1.5P SQ; -EMPA10TA PO; -FOLI1TAB27 PO; +HYDR-3972 PO; -METH4TAB3 PO; -MUPI22OI30 TOP; -ONDA4TAB12 PO; -OXYC1TAB17 PO; -PANT-47 PO; +PANT40TA54 PO; +QUET25TA36 PO; -ZOLP10TA PO; +ZOLP5TAB8 PO
[2023-12-13 09:27] VITALS: BP 143/100
[2023-12-13] MEDS: ketorolac trometh 30MG/ML vial 30 MG/ML VIAL IM ONE (10:38)
[2023-12-13 11:01] VITALS: PULSE 85; RESP 14; TEMP 97.1; O2SAT 98
== END 2023-12-13 11:09 | disposition home or self-care (01) ==
LOC: ER 09:25
DX: S16.1XXA Strain of muscle, fascia and tendon at neck level, initial encounter (principal); I10 Essential (primary) hypertension; Z91.09 Other allergy status, other than to drugs and biological substances; Z88.1 Allergy status to other antibiotic agents; Z88.8 Allergy status to other drugs, medicaments and biological substances; Z79.899 Other long term (current) drug therapy; Z79.2 Long term (current) use of antibiotics; Z79.1 Long term (current) use of non-steroidal anti-inflammatories (NSAID); Z98.890 Other specified postprocedural states; W19.XXXA Unspecified fall, initial encounter; Y93.89 Activity, other specified; Y92.89 Other specified places as the place of occurrence of the external cause; Y99.8 Other external cause status
CPT/HCPCS: 72040; 96372; 99283; J1885

== ENCOUNTER 2024-03-12 11:01 | Emergency (ER) | payer MEDICAID ==
[~2024-03-12] VITALS: Ht 160 cm; Wt 104.5 kg
[2024-03-12] MEDS ORDERED: METH-798 PO (12:23)
[2024-03-12] MEDS: ketorolac trometh 15mg/ml vial 15 MG/ML ML IM ONE (12:38)
[2024-03-12 12:49] VITALS: BP 108/64; PULSE 88; RESP 18; TEMP 97.8; O2SAT 99
== END 2024-03-12 12:50 | disposition home or self-care (01) ==
LOC: ER 11:02
DX: S33.5XXA Sprain of ligaments of lumbar spine, initial encounter (principal); I10 Essential (primary) hypertension; Z98.890 Other specified postprocedural states; Z88.8 Allergy status to other drugs, medicaments and biological substances; Z88.1 Allergy status to other antibiotic agents; Z79.899 Other long term (current) drug therapy; W01.0XXA Fall on same level from slipping, tripping and stumbling without subsequent striking against object, initial encounter; Y93.89 Activity, other specified; Y92.89 Other specified places as the place of occurrence of the external cause; Y99.8 Other external cause status
CPT/HCPCS: 96372; 99284; J1885

== ENCOUNTER 2024-10-31 05:30 | Inpatient (IN) | payer MEDICAID ==
[~2024-10-31] VITALS: Ht 160 cm; Wt 106.5 kg
[2024-10-31 06:38] LABS: MEAN PLATELET VOLUME 7.7 FL (7.4-10.4); RED CELL DISTRIBUTION WIDTH 15.0 % (11.5-14.5)
[2024-10-31 06:39] LABS: LEUKOCYTE ESTERASE ,URINE NEGATIVE (Neg); NITRITES, URINE NEGATIVE (Neg); OCCULT BLOOD,URINE NEGATIVE (Neg)
[2024-10-31 06:43] LABS: URINE HCG NEGATIVE (NEG)
[2024-10-31 06:49] LABS: UA COLLECTION TYPE CLN CATCH MIDSTREAM
[2024-10-31 06:53] LABS: CREATININE 0.67 MG/DL (0.40-0.90); TOTAL CARBON DIOXIDE 23.8 MMOL/L (24-32); eCRCL 82 ML/MIN; eGFR > 90 ML/MIN
[2024-10-31 06:54] LABS: SQUAMOUS EPITHELIAL CELL,UR MANY /LPF (FEW)
[2024-10-31 06:55] LABS: MUCUS STRANDS MODERATE /LPF (Neg)
--- NOTE | 2024-10-31 07:03 | Physician Documentation ---
History of Present Illness Chief Complaint: Abdominal Pain Stated Complaint: ABD PAIN/DIARRHEA Time Seen by MD: 06:56 OK to notify your PCP?: Yes Primary Medical Doctor: DEBORAH MASTERS [place] Source: patient, RN/, RN notes reviewed, old records Mode of Arrival: POV Exam Limitations: no limitations HPI This patient was recently started on set bound and dose was changed about a month ago. Patient had [place] fried chicken last night and then started having episodes of multiple diarrhea than constipation and then diarrhea once again had five episodes of large volume diarrhea this morning. She developed severe cramps 8/10 pain when it happens otherwise she is comfortable. Patient h as a complicated history for recent bowel obstruction and later had an additional one requiring bowel resection. There was a transition point. Patient states her pain is periumbilical epigastric area severe sharp stabbing nonradiating. She also reports recent diagnosis of ulcerative colitis. Patient denies any fevers or chills at this time. She denies any bloody diarrhea or bl ack tarry stools Medication Reconciliation Allergies: Coded Allergies: adhesive tape (Verified Allergy, Unknown, 12/13/23) azithromycin (Verified Allergy, Unknown, RASH ,SWELLING,SORETHROAT ,ITCHINESS,REDNESS, 12/13/23) cyclobenzaprine (Verified Allergy, Unknown, RASH ,SWELLING REDNESS,SORETHROAT., 12/13/23) pregabalin (Verified Allergy, Unknown, RASH ,SWELLING,SORETHROAT ,ITCHINESS,REDNESS., 12/13/23) Scheduled Amlodipine Besylate (Amlodipine Besylate), 1 TAB PO DAILY, (Reported) Atorvastatin Calcium (Atorvastatin Calcium), 1 TAB PO DAILY, (Reported) Celecoxib (Celecoxib), 1 CAP PO BID, (Reported) Duloxetine HCl (Duloxetine HCl), 2 CAP PO DAILY, (Reported) Losartan Potassium (Losartan Potassium), 1 TAB PO DAILY, (Reported) Lumateperone Tosylate (Caplyta), 1 CAP PO HS, (Reported) Methocarbamol (Methocarbamol), 1 TAB PO TID, (Reported) Pantoprazole Sodium (Pantoprazole Sodium), 1 TAB PO DAILY, (Reported) Tirzepatide (Zepbound), 1 SYR SQ Q7D, (Reported) Scheduled PRN Oxycodone Hcl/Acetaminophen (Oxycodone-Acetaminophen 10-325), 1 TAB PO QID PRN for pain, (Reported) Zolpidem Tartrate (Zolpidem Tartrate), 2 TAB PO HS PRN for sleep, (Reported) Discontinued Medications Calcium Polycarbophil (Fiber-Lax), 1 CAP PO DAILY Discontinued Reason: Other Cariprazine Hydrochloride (Vraylar), 1 CAP PO DAILY, (Reported) Discontinued Reason: Other Docusate Sodium (Colace), 1 CAP PO Q12H Discontinued Reason: Other Fluticasone Propionate (Fluticasone Propionate), 1 SPRAYS BOTHNARES DAILY PRN for allergies, (Reported) Discontinued Reason: Other Hydrocodone Bit/Acetaminophen (Hydrocodon-Acetaminophn 10-325 tablet), 1 TAB PO QID PRN for pain, (Reported) Discontinued Reason: Other Lamotrigine (Lamotrigine ER), 1 TAB PO HS, (Reported) Discontinued Reason: Other [place] Carbonate (LITHIUM CARBONATE tablet), 300 MG PO DAILY, (Reported) Discontinued Reason: Other Methocarbamol (Methocarbamol), 1 TAB PO Q8H Discontinued Reason: Other Metoprolol Succinate (Metoprolol Succinate), 1 TAB PO DAILY, (Reported) Discontinued Reason: Other Quetiapine Fumarate (Quetiapine Fumarate), 1 TAB PO HS, (Reported) Discontinued Reason: Other Past Medical History Past Medical History: Hypertension, *GI/HEPATOBILIARY*, GI Bleed, Rheumatoid Arthritis Past Surgical History: abdominal surgery, orthopedic surgeries, other Other Past Surgical History: Neck surgery C4-C6, knee surgery, ear surgery, bowel resection Patient History: FH: bipolar disorder MOTHER (Otosclerosis) sister brother Alcohol Use: None Drug Use: none Lives with: Spouse Lives In: Home Review of Systems All Other Systems at this time: Reviewed and Negative Physical Exam Vital Signs: RN Vital Signs have been reviewed: Yes, Temperature: 98.3, Source: Oral, Heart Rate: 89, Respiratory Rate: 16, BP: 124/84, Pulse Oximetry: 99, Weight: 106.450 Oxygen Flow Rate: 0 Physical Exam General: The patient is well developed, well nourished, nontoxic appearing and is in no acute distress. Skin: [place], warm and dry with no rashes. HEENT: Head was normocephalic and atraumatic. Eyes - pupils equal, round, reactive to light and accommodation. Extraocular movements were intact. Conjunctivae were nonicteric. Ears - bilateral tympanic membranes were normal. The mouth and oropharynx were clear with moist mucous membranes. There were no pharyngeal exudates or erythema. Neck: Supple and nontender. There was no jugular venous distention, lymphadenopathy, thyromegaly or masses. Chest: Clear to auscultation bilaterally without wheezes, rales or rhonchi. No accessory muscle use. No dullness to percussion. Heart: Rate regular and rhythmic. S1, S2. No murmurs. Palpation of the chest wall was normal. No rubs or thrills. Abdomen: Soft, nontender and nondistended. Hypoactive bowel sounds. No guarding or rebound. No hepatosplenomegaly or palpable masses. Extremities: No cyanosis, clubbing or edema. The patient moves all extremities. Pulses were equal and symmetric. Neurologic: Motor sensory grossly intact. Psychologic: The patient was oriented to person, place and time. The patient demonstrated appropriate judgement and insight. Progress Progress Note 1439: Dr. Francis kindly put in admission orders at this time. Results/Orders Reviewed/noted all lab results: Yes Results/Orders Orders - JESUS ARIAS MD Sbft Kub (10/31/24 06:59) Procalcitonin (10/31/24 07:00) C-Reactive Protein (10/31/24 07:00) LA (10/31/24 07:00) ESR (10/31/24 07:00) Lactated Ringer 1000ml Bolus (10/31/24 07:05) Vital Signs 10/31/24 10/31/24 05:33 06:57 Temp 98.3 98.3 Pulse 105 89 Resp 16 16 B/P (MAP) 161/96 124/84 (97) Pulse Ox 97 99 O2 Flow Rate 0 0 Laboratory Tests Test 10/31/24 05:40 10/31/24 06:24 Urine Specimen Description Cln catch midstream Urine Color Yellow Urine Clarity Slightly cloudy Urine pH 6.0 Urine Specific [place] >=1.030 Urine Protein Trace Urine Glucose (UA) Negative Urine Ketones Negative Urine Occult Blood Negative Urine Nitrite Negative Urine Bilirubin Small Urine Urobilinogen 0.2 Urine Leukocyte Esterase Negative Urine RBC None seen Urine WBC 5-10 H Urine Squamous Epithelial Cells Many Urine Bacteria 1+ Urine Mucus Moderate Urine Culture Indicated Rejected for culture Volume Urine Centrifuged 7 ml Urine HCG, Qualitative Negative Urine Comment Low volume White Blood Count 7.7 Red Blood Count 4.50 Hemoglobin 14.2 Hematocrit 41.0 Mean Corpuscular Volume 91.2 Mean Corpuscular Hemoglobin 31.5 H Mean Corpuscular Hemoglobin Concent 34.6 Red Cell Distribution Width 15.0 H Platelet Count 349 Mean Platelet Volume 7.7 Neutrophils (%) (Auto) 60.4 Lymphocytes (%) (Auto) 29.3 Monocytes (%) (Auto) 7.3 Eosinophils (%) (Auto) 2.3 Basophils (%) (Auto) 0.7 Neutrophils # (Auto) 4.6 Lymphocytes # (Auto) 2.2 Monocytes # (Auto) 0.6 Eosinophils # (Auto) 0.2 Basophils # (Auto) 0.1 CBC Comment Sodium Level 140 Potassium Level 3.9 Chloride Level 105 Carbon Dioxide Level 23.8 L Anion Gap 11 Blood Urea Nitrogen 17 Creatinine 0.67 Estimated GFR/1.73 m2 > 90 BUN/Creatinine Ratio 25.4 H Glucose Level 139 H Calcium Level 8.8 Total Bilirubin 0.4 Aspartate Amino Transf (AST/SGOT) 18 Alanine Aminotransferase (ALT/SGPT) 33 Alkaline Phosphatase 85 Total Protein 7.4 Albumin 4.1 Globulin 3.3 Albumin/Globulin Ratio 1.2 Lipase 32 Chemistry Comments Re-Evaluation Re-Evaluation : Re-Evaluation: Improved Progress Patient was seen and examined. Patient is given reassurance. Medical records were reviewed. Laboratory work was obtained lactated ringer was given pain medications as well and Reglan which she has had in the past for her small bowel obstructions. Patient appears quite comfortable but then will develop these episodes of cramping where she has severe pain. The cramping then passes and her exam is back to normal but during the cramping episodes she has significant spasm as like a labor pain. Patient denies any distention. Patient was placed on a monitor. Patient's laboratory work WBC did not show any significant signs of infection anemia and sed rate was within normal limits. Infection is unlikely inflammatory causes seem less likely. Chemistry did show some acidosis with a CO2 of 23.8 otherwise within normal limits LFTs procalcitonin and lactic acid were also within normal. Glucose was slightly elevated 139. Urinalysis showed some WBCs but it is a contaminated specimen with many squamous epithelial cells and was rejected for culture. Patient is CAT scan did not show any signs of obstruction. Nevertheless patient is still remained quite painful. She has a history of obstruction in the past possible ileus was her tentative diagnosis and intractable pain which continued therefore patient will be admitted for observation and further workup and care. Patient did receive Solu-Medrol because her pain most likely is related to a an ulcerative colitis flare. Continuous clinical research monitor interpretation shows sinus tachycardia heart rate 100s, abnormal, my interpretation. Pulse oximetry monitor interpretation shows normal oxygenation 97% room air, normal, my interpretation. 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 Jesus Arias Measurements Intervals [place] Rate: 72 P: 55 AR: 141 QRS: 10 QRSD: 93 T: 43 QT: 377 QTc: 413 Interpretive Statements Sinus rhythm Abnormal R-wave progression, early transition Electronically Signed On 10-31-2024 8:05:[address] Jesus Arias Please click the below link to view image of tracing. EKG Date and Time:10/31/24 0758 Electronically Signed by: JESUS ARIAS MD Date and Time: 10/31/24 08 Abdominal X-Ray : Additional Comment Exam: DI ABDOMEN,SINGLE VIEW(KUB) Indication: sbo Comparison: None Technique: 2 radiographic views of the abdomen. Findings: Moderate colonic stool. Nonobstructive bowel gas pattern noted. There is no definite evidence for pneumoperitoneum. No abnormal calcifications noted. Impression: Moderate volume colonic stool. Electronically Signed by:BRYANT TAY MD Date & Time: 10/31/2415 CT : Impression CT abdomen and pelvis done with IV contrast INDICATION: ABD PAIN Comparison: 02 18 2023 TECHNIQUE: Following IV administration 100 mL Omnipaque 300 Serial axial images were performed through the abdomen and pelvis and then reformatted in the sagittal and coronal plane. All CT scans at this medical facility are performed using dose modulation techniques as appropriate to a performed exam including the following: Automated exposure control was utilized; adjustment of the MA and/or KvP according to patient size; and use of iterative reconstruction technique. FINDINGS: Liver and spleen are normal in size without focal mass. No renal masses, stones or hydronephrosis. No masses or enlargement of the adrenal glands or pancreas. No biliary dilatation. No gallstones. No distention of bowel loops to suggest mechanical obstruction of bowel. There is surgical suture associated with small bowel in the left upper quadrant of the abdomen and in the central lower abdomen. The appendix is not seen. No free fluid. Within the pelvis, bladder is smooth walled without stones. No abnormal masses or fluid collections. IMPRESSION: 1. No evidence of acute pathology in the abdomen or pelvis. No signs of bowel obstruction. Postsurgical changes associated with small bowel. Computed Tomographic Radiation Dosimetry Report: Total CTDI vol = 34 mGy Total DLP = 18 40 mGy-cm Low dose protocols were performed. Electronically Signed by:KAYLI MEJIA MD Date & Time: 10/31/24 1305 Medical Decision Making Additional info obtained from: old records Differential Dx:Considerations: Include: Appendicitis, Bowel obstruction, Chola ngitis, Cholelithasis, Constipation, Diverticular disease, Esophagitis, Gastritis/PUD, Gastroenteritis, GI hemorrhage, Hernia, Hepatitis, Inflammatory BD, Ischemic bowel, Pancreatitis, Urinary obstruction, Urinary tract infection, Urolithiasis, Other Departure Time of Disposition: 14:39 Disposition: 09 ADMITTED INPATIENT Admitted to Inpatient Unit: yes, to hospitalist Admission Level of Care: Med/Surg with Tele Impression: Primary Impression: Abdominal pain Qualified Codes: R10.84 - Generalized abdominal pain Additional Impressions: History of ulcerative colitis History of bowel obstruction Condition: Fair Referrals: NO PRIMARY CARE PROVIDER (PCP) Education Educated: Patient Educated regarding: diagnosis Signature Scribe Signature: Scribed for Jesus Arias MD by Dorothy Duncan . 10/31/24 09:27 (pr lan) Attestation: The note accurately reflects work and decisions made by me.Jesus Arias MD 10/31/24 07:03 JESUS ARIAS MD Oct 31, 2024 07:03 DOROTHY BAE Oct 31, 2024 09:27
[2024-10-31] MEDS: ringers solution, lacted 1,000 ML IV ONE (07:17)
[2024-10-31] MEDS: metoclopramide 5 mg/ml inj IV ONE (07:19)
--- NOTE | 2024-10-31 07:59 | ELECTROCARDIOGRAPH REPORT ---
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 Jaciel Wasserman Measurements Intervals [place] Rate: 72 P: 55 TN: 141 QRS: 10 QRSD: 93 T: 43 QT: 377 QTc: 413 Interpretive Statements Sinus rhythm Abnormal R-wave progression, early transition Electronically Signed On 10-31-2024 8:05:[address] Jaciel Wasserman Please click the below link to view image of tracing.
--- NOTE | 2024-10-31 09:18 | RADIOLOGY REPORT ---
Exam: DI ABDOMEN,SINGLE VIEW(KUB) Indication: sbo Comparison: None Technique: 2 radiographic views of the abdomen. Findings: Moderate colonic stool. Nonobstructive bowel gas pattern noted. There is no definite evidence for pneumoperitoneum. No abnormal calcifications noted. Impression: Moderate volume colonic stool.
[2024-10-31] MEDS ORDERED: iohexol 300mg/ml 100ml inj. ONE (11:38)
--- NOTE | 2024-10-31 13:07 | RADIOLOGY REPORT ---
CT abdomen and pelvis done with IV contrast INDICATION: ABD PAIN Comparison: 02 18 2023 TECHNIQUE: Following IV administration 100 mL Omnipaque 300 Serial axial images were performed throug h the abdomen and pelvis and then reformatted in the sagittal and coronal plane. All CT scans at this medical facility are performed using dose modulation techniques as appropriate to a performed exam i ncluding the following: Automated exposure control was utilized; adjustment of the MA and/or KvP acco rding to patient size; and use of iterative reconstruction technique. FINDINGS: Liver and spleen are normal in size without focal mass. No renal masses, stones or hydronep hrosis. No masses or enlargement of the adrenal glands or pancreas. No biliary dilatation. No gallsto danielle. No distention of bowel loops to suggest mechanical obstruction of bowel. There is surgical sutur e associated with small bowel in the left upper quadrant of the abdomen and in the central lower abdo men. The appendix is not seen. No free fluid. Within the pelvis, bladder is smooth walled without st ones. No abnormal masses or fluid collections. IMPRESSION: 1. No evidence of acute pathology in the abdomen or pelvis. No signs of bowel obstruction. Postsurgi tyron changes associated with small bowel. Computed Tomographic Radiation Dosimetry Report: Total CTDI vol = 34 mGy Total DLP = 18 40 mGy-cm Low dose protocols were performed.
[2024-10-31] MEDS: metroNIDAZOLE-Flagyl 500mg/NS 100 ML IV STA (15:17)
[2024-10-31] MEDS ORDERED: OXYC1TAB17 PO (16:56)
[2024-10-31] MEDS ORDERED: AMLO5TAB16 PO (16:58)
[2024-10-31] MEDS ORDERED: LUMA42CA PO (16:58)
[2024-10-31] MEDS ORDERED: TIRZ5PEN3 SQ (16:58)
[2024-10-31] MEDS ORDERED: potassium Cl 20 mEq SR tablet PO PRN ×2 (18:40)
[2024-10-31] MEDS ORDERED: magnesium sulf-water 2g/50mL 50 ML IV PRN ×2 (18:40)
[2024-10-31] MEDS ORDERED: magnesium sulf-water 4G/100mL 100 ML IV PRN ×2 (18:40)
[2024-10-31] MEDS ORDERED: potassium Cl 40MEQ/1/2NS 520ml 520 ML IV PRN (18:40)
[2024-10-31] MEDS ORDERED: magnesium Cl slow-release 64mg tablet PO PRN ×2 (18:40)
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
[2024-10-31] MEDS: HYDROcodone/acetaminophen 5mg/325mg tablet PO PRN (19:05)
[2024-10-31] MEDS: ondansetron/PF 4mg/2ml inj IV PRN (19:06)
[2024-10-31] MEDS: normal saline 1000ml 1,000 ML IV SCH (19:17)
[2024-10-31] MEDS: K and/or MAG REPLACEMENT MC SCH (20:00)
[2024-10-31 20:10] VITALS: BP 134/93; PULSE 95; RESP 18; TEMP 98.3; O2SAT 98
[2024-10-31] MEDS: TIRZEPATIDE 5 MG/0.5 ML SQ SCH (21:55)
[2024-10-31 22:00] VITALS: BP 135/75; PULSE 82; RESP 18; TEMP 97.8; O2SAT 97
[2024-10-31] MEDS: metroNIDAZOLE-Flagyl 500mg/NS 100 ML IV SCH (23:44)
[2024-11-01 04:34] LABS: MEAN PLATELET VOLUME 7.7 FL (7.4-10.4); RED CELL DISTRIBUTION WIDTH 15.0 % (11.5-14.5)
[2024-11-01 04:45] LABS: CREATININE 0.70 MG/DL (0.40-0.90); TOTAL CARBON DIOXIDE 27.0 MMOL/L (24-32); eCRCL 79 ML/MIN; eGFR 88 ML/MIN
[2024-11-01 06:00] VITALS: BP 114/65; PULSE 92; RESP 18; TEMP 97.7; O2SAT 95
[2024-11-01] MEDS: duloxetine 30mg CAPSULE.DR PO SCH (07:39)
[2024-11-01] MEDS: pantoprazole 40mg Tablet.DR PO SCH (07:40)
[2024-11-01 10:00] VITALS: BP 137/81; PULSE 107; RESP 19; TEMP 97.9; O2SAT 96
[2024-11-01] MEDS ORDERED: GABA-1555 PO (12:11)
[2024-11-01] MEDS ORDERED: GABA-1405 PO (13:48)
--- NOTE | 2024-11-01 14:57 | PROGRESS NOTE ---
Daily Progress Note Providers to CC ~ Antibiotic Timeout Antibiotic Ordered?: Yes Subjective Continues to have abdominal pain , points, in the mid abdomen Objective Vital Signs Date Time Temp Pulse Resp B/P (MAP) Pulse Ox O2 Delivery O2 Flow Rate FiO2 11/01/24 14:10 18 11/01/24 10:00 97.9 107 137/81 (99) 96 Room Air 11/01/24 09:21 0.0 Result Diagram: 11/01/2441311/01/24413 Awake alert cooperative in no acute distress HEENT normocephalic atraumatic extraocular movements are intact Sclera anicteric Neck supple, no JVD Chest CTA , No wheezes crackles or rhonhci Heart RRR, NO MURMUR OR GALLOP OR RUB Abdomen Soft ,tender in mid abdomen , no organomegaly Extremities No C/C/E Neuro exam Nonfocal Other Results Medications reviewed Problem\Assessment\Plan 53 years old female presented to the ER for evaluation of mucus diarrhea. Patient reported that she was recently diagnosed with ulcerative colitis by Dr. Salamanca after she had a colonoscopy and has a an upcoming appointment on November 13. 1. Probable relapse of ulcerative colitis: Discussed with the Dr. Mckeon. Will DC solumedrol and continue IV flagyl as per her recommendations. 2. Hyperlipidemia: Continue atorvastatin 3. Hypertension: Continue losartan and metoprolol 4. GERD: Continue Protonix five. Depression: Continue duloxetine 6. Chronic back pain: Address pain control as necessary 7. Code status: Full code Date of Service: Nov 01, 2024 Billing Provider: NASRIN GARCIA MD Common Visit Codes: 62408-[id number] INP/OBS CARE(HIGH) NASRIN GARCIA MD Nov 01, 2024 14:57
[2024-11-01 18:00] VITALS: BP 135/81; PULSE 91; RESP 16; TEMP 98.2; O2SAT 97
--- NOTE | 2024-11-01 18:18 | CONSULTATION ---
DATE OF CONSULTATION: 11/01/2024 DICTATING PHYSICIAN: Kaur Barksdale MD REASON FOR CONSULTATION: Evaluation for diarrhea. HISTORY OF PRESENT ILLNESS: The patient has a history of diarrhea for about a week. It is watery mucoid diarrhea with associated abdominal pain and cramping. She has also had some nausea. She apparently had a colonoscopy as an outpatient in mid August and was diagnosed with ulcerative colitis. She has not been started on medications yet and she was given the report of ulcerative colitis by outpatient procedure by ____ office and subsequently has not been started on treatment. She has an appointment for the treatment to be started sometime in a month or so. The patient in the meantime developed an acute exacerbation of what appears like ulcerative colitis with the history that she has given. She however does not have any hematochezia. Since she has been here, she has been started on Solu-Medrol and Flagyl with the history that patient gave, although there is no documentation with colonoscopy and biopsy available. She has been feeling much better. She has not had any bowel movements in 24 hours. PAST MEDICAL HISTORY: As mentioned earlier, recently diagnosed ulcerative colitis. FAMILY HISTORY: Noncontributory. PERSONAL HISTORY: Noncontributory. REVIEW OF SYSTEMS: A 12-point review of systems essentially same as history of present illness. PHYSICAL EXAMINATION: GENERAL: She is awake, alert, appears to be in no apparent distress. VITAL SIGNS: Normal. HEART: Normal. LUNGS: Normal. ABDOMEN: Soft, nontender. No masses. No organomegaly. Bowel sounds are present. EXTREMITIES: Reveal no clubbing, cyanosis, or edema. NEUROLOGIC: Cranial nerves bilaterally within normal limits. HEMATOLOGIC: Reveals no anemia, petechiae, or purpura. PSYCHOLOGIC: Within normal limits. LABORATORY DATA: Hemoglobin was 14 when she came in, subsequently 12.9, platelet count is normal. Chemistries are essentially unremarkable. She had an imaging studies with CT of the abdomen on the 2nd, which showed no acute pathology in the abdomen and pelvis. She has a history of bowel surgery for bowel obstruction and postsurgical changes were reported. IMPRESSION AND PLAN: A 53-year-old lady, admitted with diarrheal illness, apparently ulcerative colitis diagnosis has been made. She has been feeling well with empiric therapy with Solu-Medrol and Flagyl. I discussed the case with the hospitalist and to obtain report of colonoscopy and biopsy so she can be started on definitive treatment for ulcerative colitis pending the followup visit for possible treatment with biologic, etc. Before starting any definitive treatment, I would like to see the report of the colonoscopy and the biopsy. The history of she feeling better with Solu-Medrol is probably suggestive of ulcerative colitis. I have discussed this with the hospitalist. I will await the report of colonoscopy and biopsy and made further recommendations, possibly started on mesalamine. Kaur Barksdale MD TID: [id number] RECEIPT: [id number] MUKESH/[place]/TARSHA
[2024-11-01 20:00] VITALS: RESP 16; O2SAT 97
[2024-11-01] MEDS: Lumateperone Tosylate (Caplyta) 42MG PO SCH (21:00)
[2024-11-01 22:00] VITALS: BP 152/78; PULSE 84; RESP 18; TEMP 97.7; O2SAT 100
[2024-11-02] MEDS ORDERED: ketorolac trometh 15mg/ml vial 15 MG/ML ML IM ONE (04:25)
[2024-11-02] MEDS: ketorolac trometh 15mg/ml vial 15 MG/ML ML IV ONE (04:47)
[2024-11-02 04:52] LABS: MEAN PLATELET VOLUME 8.1 FL (7.4-10.4); RED CELL DISTRIBUTION WIDTH 15.3 % (11.5-14.5)
[2024-11-02 05:06] LABS: CREATININE 0.61 MG/DL (0.40-0.90); TOTAL CARBON DIOXIDE 30.4 MMOL/L (24-32); eCRCL 90 ML/MIN; eGFR > 90 ML/MIN
[2024-11-02 06:12] VITALS: BP 127/81; PULSE 107; RESP 14; TEMP 98.1; O2SAT 98
[2024-11-02 11:53] VITALS: BP 136/83; PULSE 102; RESP 16; TEMP 98.1; O2SAT 95
[2024-11-02 13:58] VITALS: RESP 16; O2SAT 97
[2024-11-02] MEDS ORDERED: MESA1.2T PO (16:33)
--- NOTE | 2024-11-02 16:45 | DISCHARGE SUMMARY ---
Discharge Summary Providers to CC ~ Discharge Summary Admission Diagnosis: abdominal pain Hospital Course DATE OF ADMISSION: 10/31/2024 DATE OF DISCHARGE: 11/02/2024 Discharge Diagnosis\Comment: Relapse of ulcerative colitis Operations\Procedures: None Consultants: GI Dr. Mckeon Complications: None Condition on DC: Stable New Medications: Mesalamine (Lialda) 1.2 Gram Tablet.dr 2 TAB PO DAILY for 30 Days, #60 TAB 0 Refills Continued Medications: Amlodipine Besylate (Amlodipine Besylate) 5 Mg Tablet 1 TAB PO DAILY Atorvastatin Calcium (Atorvastatin Calcium) 80 Mg Tablet 1 TAB PO DAILY Celecoxib (Celecoxib) 200 Mg Capsule 1 CAP PO BID Duloxetine HCl (Duloxetine HCl) 60 Mg Capsule.dr 2 CAP PO DAILY Gabapentin (Gabapentin) 600 Mg Tablet 1 TAB PO TID Losartan Potassium (Losartan Potassium) 25 Mg Tablet 1 TAB PO DAILY Lumateperone Tosylate (Caplyta) 42 Mg Capsule 1 CAP PO HS Methocarbamol (Methocarbamol) 750 Mg Tablet 1 TAB PO TID Oxycodone Hcl/Acetaminophen (Oxycodone-Acetaminophen 10-325) 10 Mg-325 Mg Tablet 1 TAB PO QID PRN for pain Pantoprazole Sodium (Pantoprazole Sodium) 40 Mg Tablet.dr 1 TAB PO DAILY Tirzepatide (Zepbound) 5 Mg/0.5 Ml Pen.injctr 1 SYR SQ Q7D Zolpidem Tartrate (Zolpidem Tartrate) 5 Mg Tablet 2 TAB PO HS PRN for sleep Discharge Summary: Reason for admission: 53 years old female who presented to the ER stating that she was just diagnosed with ulcerative colitis and has an upcoming appointment with Dr. Caceres on November 13, 2024 to discuss the treatment options, started having abdominal pain x1 week. Please refer to admission H&P for further details Hospital course: Patient admitted on the monitored floor under hospital course as follows. 1. Acute exacerbation of ulcerative colitis: Patient is started on IV Flagyl and steroids. After discussing with GI, steroids discontinued. Patient has had improvement in her diarrhea however continues to have some abdominal pain. She has been discharged on p.o. Lialda as per my discussion with Dr. Mckeon. 2 Hypertension: Continued on amlodipine, losartan 3. Hyperlipidemia: Continued on atorvastatin 4. GERD: Continued on omeprazole 5. Depression: Continued on duloxetine Discharge exam: Examined the patient on the day of discharge Gen. awake alert oriented asymptomatic HEENT: Normocephalic, atraumatic, extraocular movements are intact, sclera anicteric, conjunctiva pinkish, moist oral mucosa, no rash or ulcers. NECK: Supple, no JVD, trachea midline. CHEST: Clear to auscultation, no wheezes crackles or rhonchi. HEART: Regular rate rhythm, no murmur gallop or rub. ABDOMEN: Soft, somewhat tender in midabdomen on deep palpation, no organomegaly. EXTREMITIES: No cyanosis clubbing or edema. NEURO EXAM: Grossly nonfocal. MUSCULOSKELETAL : No joint swelling or deformities. SKIN: No rash or ulcers noted. Disposition: Home *Problems/Diagnosis: (1) History of ulcerative colitis Status: Acute (2) Abdominal pain Status: Acute Total Time Spent on D/C: > 30 Minutes Date of Service: Nov 02, 2024 Billing Provider: NASRIN GARCIA MD Common Visit Codes: 32380-GSE/OBS DISCH DAY >30min Problem Qualifiers (1) Abdominal pain: Qualified Codes: R10.84 - Generalized abdominal pain NASRIN GARCIA MD Nov 02, 2024 16:45
[2024-11-02 17:29] VITALS: RESP 18
== END 2024-11-02 19:15 | disposition home or self-care (01) | DRG 245 ==
LOC: ER 05:30 → UNDOADMIN 14:39 → ED HOLD 14:39 → SUR 3N 20:10
PROVIDERS: ADMIT Internal Medicine; ATTEND Internal Medicine
PROC: BW211ZZ Computerized Tomography (CT Scan) of Abdomen and Pelvis using Low Osmolar Contrast (ICD-10-PCS; principal; 2024-10-31)
DX: K51.90 Ulcerative colitis, unspecified, without complications (principal); E78.5 Hyperlipidemia, unspecified; F31.9 Bipolar disorder, unspecified; I10 Essential (primary) hypertension; K21.9 Gastro-esophageal reflux disease without esophagitis; G89.29 Other chronic pain; M54.2 Cervicalgia; M06.9 Rheumatoid arthritis, unspecified; Z88.1 Allergy status to other antibiotic agents; Z90.49 Acquired absence of other specified parts of digestive tract; Z88.8 Allergy status to other drugs, medicaments and biological substances; Z91.09 Other allergy status, other than to drugs and biological substances; Z79.899 Other long term (current) drug therapy
CPT/HCPCS: 36415; 74018; 74177; 80048; 80053; 81001; 81025; 83605; 83690; 83735; 84145; 85025; 85651; 86140; 87040; 87081; 93005; 96365; 96375; 99285; G0378; J1885; J2270; J2405; J2765; J2919; J3490; J7030; J7120; Q9967

== ENCOUNTER 2024-12-04 08:33 | Emergency (ER) | payer MEDICAID ==
[~2024-12-04] VITALS: Ht 160 cm; Wt 90.8 kg
[~2024-12-04 08:33] MED LIST changes: +AMLO5TAB16 PO; -CALC625T9 PO; -CARI4.5C PO; -DOCU-148 PO; -FLUT16SP26 BOTHNARES; +GABA-1405 PO; -HYDR-3972 PO; -LAMO200T51 PO; -LIT300C PO; +LUMA42CA PO; +MESA1.2T PO; -METO-395 PO; +OXYC1TAB17 PO; -QUET25TA36 PO; +TIRZ5PEN3 SQ
[2024-12-04 08:41] VITALS: TEMP 98.6
[2024-12-04 09:24] LABS: URINE HCG NEGATIVE (NEG)
[2024-12-04 09:25] LABS: LEUKOCYTE ESTERASE ,URINE NEGATIVE (Neg); NITRITES, URINE NEGATIVE (Neg); OCCULT BLOOD,URINE NEGATIVE (Neg)
[2024-12-04 09:30] LABS: UA COLLECTION TYPE CLN CATCH MIDSTREAM
[2024-12-04 09:31] LABS: MEAN PLATELET VOLUME 7.7 FL (7.4-10.4); RED CELL DISTRIBUTION WIDTH 14.7 % (11.5-14.5)
[2024-12-04 09:37] LABS: MUCUS STRANDS MODERATE /LPF (Neg); SQUAMOUS EPITHELIAL CELL,UR MANY /LPF (FEW)
[2024-12-04 09:38] LABS: CAL OXALATE CRYSTALS 4+ /HPF (NEGATIVE)
[2024-12-04 09:45] LABS: CREATININE 0.50 MG/DL (0.40-0.90); TOTAL CARBON DIOXIDE 27.7 MMOL/L (24-32); eCRCL 110 ML/MIN; eGFR > 90 ML/MIN
--- NOTE | 2024-12-04 10:13 | Physician Documentation ---
History of Present Illness Chief Complaint: Abdominal Pain Stated Complaint: DIARRHEA Time Seen by MD: 09:58 Primary Medical Doctor: DEBORAH MASTERS IN Mode of Arrival: POV HPI 53-year-old female presenting for abdominal pain and diarrhea for the past couple of weeks. Patient reports that she has a history of ulcerative colitis and will occasionally get flare-ups. This initially started like one of her flare-ups however she states that the diarrhea has lasted longer than it typically does. She reports watery and occasionally bloody diarrhea that has been ongoing about four to 5 times a day for the past two weeks. She states that she has been wiping so much that her rectal area is very red and sore. Additionally she states that she has had difficulty urinating even though she is drinking lots of fluids. Does state that she has been nauseated and has had a couple episodes of vomiting during this time as well. Endorses some redness around her vaginal area as well. She denies any fever, chills or any other associated symptoms. Medication Reconciliation Allergies: Coded Allergies: adhesive tape (Verified Allergy, Unknown, 12/04/24) azithromycin (Verified Allergy, Unknown, RASH ,SWELLING,SORETHROAT ,ITCHINESS,REDNESS, 12/04/24) cyclobenzaprine (Verified Allergy, Unknown, RASH ,SWELLING REDNESS,SORETHROAT., 12/04/24) pregabalin (Verified Allergy, Unknown, RASH ,SWELLING,SORETHROAT ,ITCHINESS,REDNESS., 12/04/24) Scheduled Amlodipine Besylate (Amlodipine Besylate), 1 TAB PO DAILY, (Reported) Atorvastatin Calcium (Atorvastatin Calcium), 1 TAB PO DAILY, (Reported) Celecoxib (Celecoxib), 1 CAP PO BID, (Reported) Duloxetine HCl (Duloxetine HCl), 2 CAP PO DAILY, (Reported) Gabapentin (Gabapentin), 1 TAB PO TID, (Reported) Losartan Potassium (Losartan Potassium), 1 TAB PO DAILY, (Reported) Lumateperone Tosylate (Caplyta), 1 CAP PO HS, (Reported) Mesalamine (Lialda), 2 TAB PO DAILY Methocarbamol (Methocarbamol), 1 TAB PO TID, (Reported) Pantoprazole Sodium (Pantoprazole Sodium), 1 TAB PO DAILY, (Reported) Tirzepatide (Zepbound), 1 SYR SQ Q7D, (Reported) Scheduled PRN Oxycodone Hcl/Acetaminophen (Oxycodone-Acetaminophen 10-325), 1 TAB PO QID PRN for pain, (Reported) Zolpidem Tartrate (Zolpidem Tartrate), 2 TAB PO HS PRN for sleep, (Reported) Past Medical History Past Medical History: Hypertension, *GI/HEPATOBILIARY*, GI Bleed, Rheumatoid Arthritis Past Surgical History: abdominal surgery, orthopedic surgeries, other Other Past Surgical History: Neck surgery C4-C6, knee surgery, ear surgery, bowel resection Patient History: FH: bipolar disorder MOTHER (Otosclerosis) sister brother Alcohol Use: None Drug Use: none Lives with: Spouse Lives In: Home Physical Exam Vital Signs: Temperature: 98.6, Source: Oral, Heart Rate: 82, Respiratory Rate: 14, BP: 120/88, Pulse Oximetry: 97, Weight: 199.700 Oxygen Flow Rate: 0 Physical Exam I have reviewed the triage vitals. CONST: Well developed and well nourished. In no acute distress HENT: Head Atraumatic EYES: Pupils are equal, round and reactive to light. Normal conjunctiva NECK: Normal range of motion. Supple. CARDIO: Normal rate and regular rhythm. No murmurs, rubs, or gallops. S1, S2. PULM/CHEST: No respiratory distress. Lungs clear to auscultation. No wheeze ABD: Soft, diffuse tenderness to palpation over the lower abdomen. Nondistended. Bowel sounds normal. No guarding. : Exam deferred MSK: No edema. No deformity. NEURO: Alert and oriented to person, place and time. Moving all extremities SKIN: Warm and dry. PSYCH: Normal mood and affect. Good eye contact. Progress Results/Orders Results/Orders Orders - JACOB WASHINGTON MD Normal Saline 1000ml (0.9% Sodium Chlori (12/04/24 10:10) Ct Abdomen Pelvis (12/04/24 10:10) Completed Orders - JACOB WASHINGTON MD Hcg, Ur Ql (12/04/24 08:45) Cbc/Diff (12/04/24 08:45) BMP (12/04/24 08:45) Lipase (12/04/24 08:45) CMP (12/04/24 08:45) Ua W/Microscopic, Cult If Ind (12/04/24 09:13) Vital Signs 12/04/24 12/04/24 12/04/24 08:41 08:59 09:33 Temp 98.6 Pulse 86 82 Resp 18 14 14 B/P (MAP) 162/81 120/88 (99) Pulse Ox 99 97 O2 Flow Rate 0 0 Laboratory Tests Test 12/04/24 09:13 12/04/24 09:18 Urine Specimen Description Cln catch midstream Urine Color Yellow Urine Clarity Slightly cloudy Urine pH 6.0 Urine Specific [place] >=1.030 Urine Protein Trace Urine Glucose (UA) 250 H Urine Ketones Trace H Urine Occult Blood Negative Urine Nitrite Negative Urine Bilirubin Moderate Urine Urobilinogen 0.2 Urine Leukocyte Esterase Negative Urine RBC 0-2 Urine WBC 5-10 H Urine Squamous Epithelial Cells Many Urine Calcium Oxalate Crystals 4+ Urine Bacteria 1+ Urine Mucus Moderate Urine Culture Indicated Rejected for culture Volume Urine Centrifuged 10 ml Urine HCG, Qualitative Negative Urine Comment White Blood Count 6.7 Red Blood Count 4.21 Hemoglobin 12.7 Hematocrit 37.9 Mean Corpuscular Volume 90.1 Mean Corpuscular Hemoglobin 30.1 Mean Corpuscular Hemoglobin Concent 33.4 Red Cell Distribution Width 14.7 H Platelet Count 300 Mean Platelet Volume 7.7 Neutrophils (%) (Auto) 62.5 Lymphocytes (%) (Auto) 26.5 Monocytes (%) (Auto) 6.0 Eosinophils (%) (Auto) 4.3 Basophils (%) (Auto) 0.7 Neutrophils # (Auto) 4.2 Lymphocytes # (Auto) 1.8 Monocytes # (Auto) 0.4 Eosinophils # (Auto) 0.3 Basophils # (Auto) 0.0 CBC Comment Sodium Level 141 Potassium Level 3.5 Chloride Level 108 H Carbon Dioxide Level 27.7 Anion Gap 5 L Blood Urea Nitrogen 18 Creatinine 0.50 Estimated GFR/1.73 m2 > 90 BUN/Creatinine Ratio 36.0 H Glucose Level 198 H Calcium Level 8.5 Total Bilirubin 0.2 Aspartate Amino Transf (AST/SGOT) 21 Alanine Aminotransferase (ALT/SGPT) 34 Alkaline Phosphatase 72 Total Protein 6.3 L Albumin 3.3 L Globulin 3.0 Albumin/Globulin Ratio 1.1 Lipase 28 Chemistry Comments EKG/XRAY/CT/US/VASC/MRI CT : Impression CT CT ABDOMEN PELVIS W/ IV CONTRAST INDICATION: abdominal pain EXAM DATE: 12/04/2024 12:19 PM COMPARISON: CT CT ABDOMEN PELVIS W/ IV CONTRAST on DOS: 10/31/24, CT CT ABDOMEN PELVIS on DOS: 02/18/23, CT ABDOMEN PELVIS on DOS: 09/01/22 RADIATION DOSE: CTDIvol: 34 mGy, DLP: 1920 mGy*cm PROCEDURE: Helical CT images were obtained of the abdomen and pelvis with IV contrast Sagittal and coronal reconstructions are provided. ORAL CONTRAST: None. ADDITIONAL IMAGES / REFORMATS: None All CT scans at this medical facility are performed using dose modulation techniques as appropriate to a performed exam including the following: Automated exposure control was utilized; adjustment of the MA and/or KV according to patient size; and use of iterative reconstruction technique. FINDINGS: LUNG BASE: Normal. LIVER: Normal. GALLBLADDER AND BILIARY TREE: No calcified gallstones. Normal caliber wall. No intra- or extrahepatic biliary ductal dilation. PANCREAS: Normal. SPLEEN: Normal. BOWEL: Similar post surgical changes from bowel resection. Normal appearing appendix. ADRENALS: Normal. KIDNEYS AND URETER: Normal. BLADDER: Normal. REPRODUCTIVE ORGANS: Normal. LYMPH NODES:No lymphadenopathy. PERITONEUM: No ascites or free air. No other fluid collection. VESSELS: Scattered atherosclerotic calcifications are noted. RETROPERITONEUM: Normal. ABDOMINAL WALL: Normal. BONES: Scattered osseous degenerative changes are noted. IMPRESSION: No acute intraabdominal abnormality. Similar post surgical changes from bowel resection. Departure Disposition: HOME / SELF CARE / HOMELESS Impression: Primary Impression: Acute gastroenteritis Additional Impression: Ulcerative colitis Condition: Improved Discharge Instructions: Viral Gastroenteritis, Adult Additional Instructions: Please take your medication as prescribed. Drink plenty of fluids. Follow up with her primary care physician as well as your flyer builder within the next 1-2 weeks. Return to the ED with any acutely worsening symptoms. Referrals: NO PRIMARY CARE PROVIDER (PCP) Prescriptions Prednisone* (Prednisone*) 20 Mg Tablet 2 TAB PO DAILY for 7 Days, #14 TAB Prov: JACOB WASHINGTON MD 12/04/24 Metronidazole* (Flagyl*) 500 Mg Tablet 1 TAB PO Q8H for 10 Days, #30 TAB Prov: JACOB WASHINGTON MD 12/04/24 JACOB WASHINGTON MD Dec 04, 2024 10:13
[2024-12-04] MEDS: ondansetron/PF 4mg/2ml inj IV ONE (11:10)
[2024-12-04] MEDS: normal saline 1000ml 1,000 ML IV ONE (11:10)
--- NOTE | 2024-12-04 12:57 | RADIOLOGY REPORT ---
CT CT ABDOMEN PELVIS W/ IV CONTRAST INDICATION: abdominal pain EXAM DATE: 12/04/2024 12:19 PM COMPARISON: CT CT ABDOMEN PELVIS W/ IV CONTRAST on DOS: 10/31/24, CT CT ABDOMEN PELVIS on DOS: 02/18/23 , CT ABDOMEN PELVIS on DOS: 09/01/22 RADIATION DOSE: CTDIvol: 34 mGy, DLP: 1920 mGy*cm PROCEDURE: Helical CT images were obtained of the abdomen and pelvis with IV contrast Sagittal and co paul reconstructions are provided. ORAL CONTRAST: None. ADDITIONAL IMAGES / REFORMATS: None All CT s cans at this medical facility are performed using dose modulation techniques as appropriate to a perf ormed exam including the following: Automated exposure control was utilized; adjustment of the MA and /or KV according to patient size; and use of iterative reconstruction technique. FINDINGS: LUNG BASE: Normal. LIVER: Normal. GALLBLADDER AND BILIARY TREE: No calcified gallstones. Normal caliber wall. No intra- or extrahepatic biliary ductal dilation. PANCREAS: Normal. SPLEEN: Normal. BOWEL: Similar post surgical changes from bowel resection. Normal appearing appendix. ADRENALS: Normal. KIDNEYS AND URETER: Normal. BLADDER: Normal. REPRODUCTIVE ORGANS: Normal. LYMPH NODES:No lymphadenopathy. PERITONEUM: No ascites or free air. No other fluid collection. VESSELS: Scattered atherosclerotic calcifications are noted. RETROPERITONEUM: Normal. ABDOMINAL WALL: Normal. BONES: Scattered osseous degenerative changes are noted. IMPRESSION: No acute intraabdominal abnormality. Similar post surgical changes from bowel resection.
[2024-12-04 14:31] VITALS: BP 124/70; PULSE 78; RESP 18; O2SAT 100
[2024-12-04] MEDS ORDERED: METR-159 PO (15:49)
[2024-12-04] MEDS ORDERED: PRED20TA PO (15:49)
== END 2024-12-04 16:16 | disposition home or self-care (01) ==
LOC: ER 08:34
DX: K52.9 Noninfective gastroenteritis and colitis, unspecified (principal); K51.911 Ulcerative colitis, unspecified with rectal bleeding; I10 Essential (primary) hypertension; M06.9 Rheumatoid arthritis, unspecified; Z88.1 Allergy status to other antibiotic agents; Z88.8 Allergy status to other drugs, medicaments and biological substances
CPT/HCPCS: 36415; 74177; 80053; 81001; 81025; 83690; 85025; 96361; 96374; 96375; 96376; 99285; J2270; J2405; J7030; J7512; Q9967